=== PATIENT | female | born 1995 | race Two or more races ===

== ENCOUNTER 2019-03-28 22:22 | Outpatient (CLI) | payer OTHER ==
[~2019-03-28] VITALS: Ht 162.6 cm; Wt 95.0 kg
[2019-03-28 22:52] LABS: MICROSCOPIC INDICATED
[2019-03-28 23:00] LABS: CREATININE,URINE RANDOM 40.4 mg/dL
[2019-03-28 23:17] LABS: ALANINE AMINOTRANSFERASE 12 U/L (12-78); ALBUMIN 2.7 g/dL (3.4-5.0); ANION GAP 10 mmol/L (5-15); CALCIUM 8.5 mg/dL (8.5-10.1); CHLORIDE 108 mmol/L (98-107); CREATININE 0.58 mg/dL (0.55-1.02)
[2019-03-28 23:18] LABS: BASOPHILS # (AUTO) 0.02 x10^3/uL (0-0.1); BASOPHILS % (AUTO) 0 % (0-1); EOSINOPHILS # (AUTO) 0.26 x10^3/uL (0-0.4); EOSINOPHILS % (AUTO) 2 % (1-7); LYMPHOCYTES # (AUTO) 1.91 x10^3/uL (1-3.4); LYMPHOCYTES % (AUTO) 16 % (22-44); MD NO; MEAN CORPUSCULAR HEMOGLOBIN 32.1 pg (27.0-34.8); MEAN CORPUSCULAR HGB CONC 33.5 g/dL (32.4-35.8); MEAN CORPUSCULAR VOLUME 95.8 fL (80-100); MEAN PLATELET VOLUME 8.2 fL (7.4-10.4); MONOCYTES # (AUTO) 0.78 x10^3/uL (0.2-0.8); MONOCYTES % (AUTO) 7 % (2-9); NEUTROPHILS # (AUTO) 8.95 x10^3/uL (1.8-6.8); NEUTROPHILS % (AUTO) 75 % (42-75); PLATELET COUNT 287 x10^3/uL (130-400); RED BLOOD COUNT 3.86 x10^6/uL (3.82-5.3); RED CELL DISTRIBUTION WIDTH 13.6 % (9.6-15.2)
[2019-03-28 23:21] LABS: ALKALINE PHOSPHATASE 89 U/L (45-117); BILIRUBIN,TOTAL 0.4 mg/dL (0.2-1.0); TOTAL PROTEIN 6.4 g/dL (6.4-8.2)
[2019-03-30] MEDS ORDERED: PREN1TAB60 PO (21:52)
[2019-03-30] MEDS ORDERED: CEPH-376 PO (21:52)
[2019-03-30] MEDS ORDERED: LEVO25TA4 PO (21:52)
[2019-04-02] MEDS ORDERED: IBUP-1222 PO (08:15)
[2019-04-02] MEDS ORDERED: DOCU-131 PO (08:16)
== END 2019-03-29 00:15 | disposition home or self-care (01) ==
LOC: LDOP 22:22
PROVIDERS: ATTEND Obstetrics & Gynecology
DX: O13.3 Gestational [pregnancy-induced] hypertension without significant proteinuria, third trimester (principal); O26.893 Other specified pregnancy related conditions, third trimester; Z3A.37 37 weeks gestation of pregnancy
CPT/HCPCS: 36415; 59025; 80053; 81001; 82239; 82570; 83615; 84156; 84550; 85025; 87086; 99201; G0463